=== PATIENT | female | born 1945 | race Caucasian/White ===

== ENCOUNTER → 2018-03-04 10:44 | Outpatient (CLI) | payer MEDICARE, BC, SELFPAY ==
--- NOTE | 2018-03-04 | DI.ECHO.S_ITS ---
[place] [facility]---------+ [facility] +---------+ : : [address] : : : : [id number] : : : : Phone: [phone]+ Echocardiogram Report + + :Name: KATHERINE FRAZIER Study Date: 03/04/2018 Height: 60 in : :[facility] Exam Location: [facility] Weight: 109 lb : : Gender: Female BSA: 1.4 m2 : :: 1945 Age: 72 yrs BP: 105/70 mmHg: :Reason For Study: Atrial fibrillation : :Ordering Physician: Liv Alberto : :Ralph Performed By: Aura Page : + + Interpretation Summary 1) Normal left ventricular size, thickness, and systolic function (EF 55-60%). 2) There is a large mobile mass measuring at 1.5x 2.1 cm that has echolucency in it and appears attached to mid inferoseptum. This is suspicious for tumor. 3) Normal right ventricular size and function. 4) Both atria are severely dilated. 5) The IVC is dilated (diameter is greater than 2.1 cm) and it collapses less than 50% with a sniff. This suggests a high right atrial pressure of 15 mm Hg. 6) No prior Echo available for comparison. I spoke with Dr. Gallego at [facility] cardiac surgery and he will see the patient expeditiously as outpatient in his clinic to discuss further care. Procedure: A two-dimensional transthoracic echocardiogram with color flow and Doppler was performed. The study quality was technically adequate. There is no prior echocardiogram noted for this patient. The patient was in atrial fibrillation with heart rates between 94-114 bpm during the exam. Left Ventricle: The left ventricle is normal in size. There is normal left ventricular wall thickness. There is a large mobile mass measuring at 1.5x 2.1 cm that has echolucency in it and appears attached to mid inferoseptum. The ejection fraction is estimated to be 55-60%. Left ventricular systolic function is normal. There are no obvious focal wall motion abnormalities noted but poor endocardial definition reduces the sensitivity for the detection of such. Diastolic function could not be accurately assessed due to atrial fibrillation. Right Ventricle: The right ventricle is normal in size and function. Atria: Both atria are severely dilated. There is no Doppler evidence for an interatrial shunt. Mitral Valve: The mitral valve is normal in structure and function. There is mild mitral annular calcification. Aortic Valve: The aortic valve is trileaflet. The aortic valve opens well. There is no aortic valve stenosis. No aortic regurgitation is present. Tricuspid Valve: The tricuspid valve is normal in structure and function. There is mild tricuspid regurgitation. The right ventricular systolic pressure is estimated at 45 mmHg assuming a right atrial pressure of 15 mm Hg. Pulmonic Valve: The pulmonic valve is not well visualized. There is trace pulmonic regurgitation. Great Vessels: The aortic root is mildly dilated. The ascending aorta is normal in size. The pulmonary artery is not well visualized, but is probably normal size. The IVC is dilated (diameter is greater than 2.1 cm) and it collapses less than 50% with a sniff. This suggests a high right atrial pressure of 15 mm Hg. Pericardium/ Pleura There is no pericardial effusion. There is no pleural effusion. MMode/2D Measurements & Calculations LVIDd: 3.9 cm Ao root diam: 4.0 cm LVIDs: 3.0 cm asc Aorta Diam: 2.9 cm FS: 23.6 % EPSS: 0.26 cm IVSd: 0.83 cm LVPWd: 0.79 cm LV hatch. diameter/BSA (cm/m^2): 2.7 LV sys. diameter/BSA (cm/m^2): 2.1 LA A2 area: 29.3 cm2 RA long axis: 6.1 cm LA A4 area: 26.5 cm2 RA area: 24.9 cm2 LA length (vol): 6.4 cm RA vol: 86.5 ml LA vol: 103.0 ml RA : 60.0 ml/m2 LA vol index: 71.4 ml/m2 IVC diam: 2.1 cm TAPSE: 1.6 cm Doppler Measurements & Calculations Ao V2 max: 76.1 cm/sec LVOT Max Matthew: 69.7 cm/sec Ao V2 mean: 54.2 cm/sec LV V1 max P.9 mmHg Ao max P.3 mmHg LV V1 VTI: 12.7 cm Ao mean P.3 mmHg sev ratio: 0.95 Ao V2 VTI: 13.3 cm MV E max matthew: 87.6 cm/sec TR max matthew: 245.8 cm/sec TR max P.2 mmHg PA V2 max: 45.6 cm/sec PA V2 mean: 30.1 cm/sec PA mean P.42 mmHg Reading Physician:12:36 PM
== END ==
PROVIDERS: Visit Provider Internal Medicine Cardiovascular Disease
DX: I48.1 Persistent atrial fibrillation (principal); I07.1 Rheumatic tricuspid insufficiency; I51.9 Heart disease, unspecified
CPT/HCPCS: 93306

== ENCOUNTER → 2018-05-02 11:54 | Outpatient (CLI) | payer MEDICARE, BC, SELFPAY | PROVIDERS: PCP Family Medicine; Visit Provider Family Medicine | DX: I48.91 Unspecified atrial fibrillation (principal) ==

== ENCOUNTER → 2018-08-10 14:51 | Outpatient (CLI) | payer MEDICARE, BC, SELFPAY ==
--- NOTE | 2018-08-10 | DI.ECHO.S_ITS ---
[place] +---------+ [facility] +---------+ : : [address] : : : : [id number] : : : : Phone: [phone]+ Echocardiogram Report + + :Name: KATHERINE FRAZIER Study Date: 08/10/2018 Height: 60 in : :[facility] Exam Location: [facility] Weight: 119 lb : : Gender: Female BSA: 1.5 m2 : :: 1945 Age: 72 yrs BP: 120/80 mmHg: :Reason For Study: Atrial fibrillation : :Ordering Physician: Liv Alberto : :Ralph Performed By: Aura Page : + + Interpretation Summary 1) Normal left ventricular size with low normal systolic function (EF 50-55%). 2) There is apical akinesis. Septal motion is consistent with post-operative state. 3) Mildly enlarged right ventricle with mildly reduced function. 4) Both atria are severely dilated. 5) There is moderate mitral regurgitation. 6) There is moderate tricuspid regurgitation. 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 Procedure: A two-dimensional transthoracic echocardiogram with color flow and Doppler was performed. The study quality was technically adequate. Comparison is made with the echocardiogram of 03/04/2018. The patient was in atrial fibrillation with heart rates between 117-118 bpm during the exam. Left Ventricle: The left ventricle is normal in size. Left ventricular wall thickness is mildly increased. The ejection fraction is estimated to be 50- 55%. Left ventricular systolic function is low normal. There is apical akinesis. Septal motion is consistent with post-operative state. Diastolic function could not be accurately assessed due to atrial fibrillation. Right Ventricle: The right ventricle is mildly dilated. Right ventricular systolic function is mildly reduced. Atria: Both atria are severely dilated. There is no Doppler evidence for an interatrial shunt. Mitral Valve: The mitral valve leaflets appear mildly thickened, but open well. There is mild mitral annular calcification. There is moderate mitral regurgitation. There are multiple regurgitant jets present. Aortic Valve: The aortic valve is trileaflet. The aortic valve opens well. There is no aortic valve stenosis. No aortic regurgitation is present. Tricuspid Valve: Tricuspid leaflets are thickened. There is moderate tricuspid regurgitation. Right ventricular systolic pressure is estimated to be 22 mmHg plus the clinically estimated CVP which cannot be estimated on this exam. Pulmonic Valve: The pulmonic valve is not well visualized. There is trace pulmonic regurgitation. Great Vessels: The aortic root is normal size. The ascending aorta is normal in size. The pulmonary artery is not well visualized, but is probably normal size. The IVC does not appear dilated but does not appear to have respiratory collapse which suggests moderately high central venous pressure. Pericardium/ Pleura There is no pericardial effusion. There is no pleural effusion. MMode/2D Measurements & Calculations LVIDd: 3.8 cm LVOT diam: 1.7 cm LVIDs: 3.0 cm Ao root diam: 3.7 cm FS: 20.5 % asc Aorta Diam: 3.1 cm EPSS: 0.60 cm IVSd: 0.80 cm LVPWd: 0.99 cm LV hatch. diameter/BSA (cm/m^2): 2.6 LV sys. diameter/BSA (cm/m^2): 2.0 LA A2 area: 25.2 cm2 RA long axis: 6.8 cm LA A4 area: 25.1 cm2 RA area: 29.5 cm2 LA length (vol): 6.8 cm RA vol: 108.9 ml LA vol: 79.0 ml RA : 72.8 ml/m2 LA vol index: 52.7 ml/m2 IVC diam: 1.8 cm RVD1 (basal): 4.0 cm TAPSE: 1.1 cm Doppler Measurements & Calculations Ao V2 max: 67.6 cm/sec LVOT Max Matthew: 45.4 cm/sec Ao V2 mean: 52.6 cm/sec LV V1 max P.83 mmHg Ao max P.8 mmHg LV V1 VTI: 7.1 cm Ao mean P.2 mmHg LULY(I,D): 1.5 cm2 Ao V2 VTI: 11.0 cm LULY(V,D): 1.6 cm2 sev ratio: 0.65 LULY indexed to BSA (cm^2/m^2): 1.00 MV E max matthew: 84.0 cm/sec TR max matthew: 234.1 cm/sec Med Peak E' Matthew: 4.5 cm/sec TR max P.9 mmHg E/E' med: 18.6 PA V2 max: 44.7 cm/sec Lat Peak E' Matthew: 7.0 cm/sec PA V2 mean: 31.9 cm/sec E/E' lat: 12.0 PA mean P.44 mmHg E/e' average: 15.3 MV P1/2t: 33.8 msec MV P1/2t max matthew: 86.2 cm/sec SV(LVOT): 16.4 ml MVA(P12t): 6.5 cm2 Reading Physician:05:09 PM
== END ==
PROVIDERS: PCP Family Medicine; Visit Provider Internal Medicine Cardiovascular Disease
DX: I48.91 Unspecified atrial fibrillation (principal); I08.1 Rheumatic disorders of both mitral and tricuspid valves
CPT/HCPCS: 93306

== ENCOUNTER → 2020-09-10 14:53 | Outpatient (CLI) | payer MEDICARE, BC, SELFPAY ==
--- NOTE | 2020-09-10 14:56 | DI.ECHO.S_ITS ---
[place] +---------+ Hospital +---------+ : : [address] : : : : [id number] : : : : Phone: [phone]+ Echocardiogram Report + + :Name: KATHERINE FRAZIER Study Date: 09/10/2020 Height: 60 in : :[facility] ReadingLocation: Weight: 110 lb : : Gender: Female BSA: 1.4 m2 : :: 1945 Age: 74 yrs BP: 147/81 mmHg: :Reason For Study: ATRIAL FIBRILLATION : :Ordering Physician: AVERY, : :JAMISON Performed By: Natividad Gardner : :Referring: JAMISON ROSAS : + + Interpretation Summary 1) Normal left ventricular size, thickness, wall motion, and systolic function (EF 60-65%). 2) Nromal right ventricular size and function. 3) Both atria are severely dilated. 4) No significant valvular abnormalities. 5) The right ventricular systolic pressure is estimated to be at least 39 mmHg based on an estimated right atrial pressure of 3 mm Hg. 6) Compared to the Echo done 03/29/2019, no significant change. Procedure: A two-dimensional transthoracic echocardiogram with color flow and Doppler was performed. The study quality was technically adequate. Comparison is made with the echocardiogram of 03/29/2019. The patient was in sinus bradycardia with heart rates between 53-64 bpm during the exam. The patient had occasional PVCs during the exam. Left Ventricle: The left ventricle is normal in size and wall thickness. The ejection fraction is estimated to be 60-65%. Left ventricular systolic function appears normal without focal wall motion abnormalities. Right Ventricle: The right ventricle is normal in size and function. Atria: Both atria are severely dilated. There is no Doppler evidence for an interatrial shunt. Mitral Valve: There is mild mitral annular calcification. The mitral valve leaflets appear mildly thickened, but open well. There is mild mitral regurgitation. Aortic Valve: The aortic valve is trileaflet. The aortic valve opens well. There is mild aortic valve sclerosis. There is no aortic valve stenosis. No aortic regurgitation is present. Tricuspid Valve: The tricuspid valve leaflets are thin and pliable. There is mild tricuspid regurgitation. The right ventricular systolic pressure is estimated to be at least 39 mmHg based on an estimated right atrial pressure of 3 mm Hg. Pulmonic Valve: The pulmonic valve is not well seen, but is grossly normal. There is no pulmonic valvular regurgitation. Great Vessels: The aortic root is normal size. The dimensions of the ascending aorta are normal. The IVC is of normal diameter and collapses greater than 50% with a sniff. This suggests a low right atrial pressure of 3 mm Hg. Pericardium/ Pleura There is no pericardial effusion. There is no pleural effusion. MMode/2D Measurements & Calculations LVIDd: 4.6 cm LVOT diam: 2.0 cm LVIDs: 3.0 cm Ao root diam: 3.6 cm FS: 34.6 % asc Aorta Diam: 3.0 cm EPSS: 0.32 cm Ao Arch Diam (Prox Trans): 2.7 cm IVSd: 0.79 cm LVPWd: 0.74 cm LV hatch. diameter/BSA (cm/m^2): 3.2 LV sys. diameter/BSA (cm/m^2): 2.1 LA A2 area: 29.1 cm2 RA long axis: 5.8 cm LA A4 area: 28.6 cm2 RA area: 26.7 cm2 LA length (vol): 6.5 cm RA vol: 104.9 ml LA vol: 108.2 ml RA : 72.5 ml/m2 LA vol index: 74.8 ml/m2 IVC diam: 1.5 cm RVD1 (basal): 3.7 cm TAPSE: 1.9 cm Doppler Measurements & Calculations Ao V2 max: 109.6 cm/sec LVOT Max Matthew: 107.6 cm/sec Ao V2 mean: 73.3 cm/sec LV V1 max P.6 mmHg Ao max P.8 mmHg LV V1 VTI: 24.6 cm Ao mean P.5 mmHg LULY(I,D): 3.2 cm2 Ao V2 VTI: 24.3 cm LULY(V,D): 3.1 cm2 sev ratio: 1.0 LULY indexed to BSA (cm^2/m^2): 2.2 MV E max matthew: 98.6 cm/sec TR max matthew: 298.9 cm/sec Med Peak E' Matthew: 4.1 cm/sec TR max P.7 mmHg E/E' med: 24.0 PA V2 max: 72.2 cm/sec Lat Peak E' Matthew: 10.3 cm/sec PA V2 mean: 53.7 cm/sec E/E' lat: 9.6 PA mean P.3 mmHg E/e' average: 16.8 PA pr(Accel): 31.0 mmHg MV dec time: 0.17 sec SV(LVOT): 77.0 ml Reading Physician:10:30 AM
== END ==
PROVIDERS: PCP Family Medicine; Referring Provider Internal Medicine Cardiovascular Disease; Visit Provider Internal Medicine Cardiovascular Disease
DX: I48.19 Other persistent atrial fibrillation (principal)
CPT/HCPCS: 93306

== ENCOUNTER → 2021-05-07 08:19 | Outpatient (CLI) | payer MEDICARE, SELFPAY ==
[2021-05-07 12:07] LABS: COVID19 -Nasal RAPID Negative (Negative)
== END ==
PROVIDERS: PCP Family Medicine; Visit Provider Physician Assistant
DX: Z20.822 Contact with and (suspected) exposure to COVID-19 (principal)
CPT/HCPCS: 87635; C9803

== ENCOUNTER 2021-05-09 14:28 | Day surgery (SDC) | payer MEDICARE, OTHER, SELFPAY ==
--- NOTE | 2021-05-09 12:31 | PM.HP.1 ---
History of Present Illness History of Present Illness Date Patient Seen: 05/09/21 Chief complaint: SCREENING COLONOSCOPY Narrative: 75 year old female comes in today for consideration of a screening colonoscopy. Last colonoscopy in 2016 significant for a sigmoid tubular adenoma, diminutive. Mild diverticulosis noted, left-sided. There have been no lower GI symptoms suggesting disease such as change in bowel habits, bleeding, abdominal pain or anemia. There's been no family history of colon cancer or colon polyps. Overall health issues have been stable, including no major cardiac events for at least 6 weeks. She is on Eliquis. Dr. Ramirez has approved her procedure and advised her to stop Eliquis 3 days prior and restart 1 day after the colonoscopy. PCP: Dr. 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 Retired RN. Meds Home Medications and Allergies Home Medications Medication Instructions Recorded Confirmed Type apixaban 5 mg tablet (Eliquis) 5 mg PO DAILY 05/09/21 05/09/21 History levothyroxine 88 mcg tablet 88 mcg PO DAILY 05/09/21 05/09/21 History metoprolol succinate 50 mg 25 mg PO BID 05/09/21 05/09/21 History tablet,extended release 24 hr Allergies Allergy/AdvReac Type Severity Reaction Status Date / Time Penicillins [PENICILLINS] Allergy Intermediate Rash Verified 05/09/21 15:24 Review of Systems Review of Systems Narrative: All remaining ROS were reviewed and negative except as addressed. Exam Narrative Exam Narrative: GENERAL: Alert and oriented, appearing stated age and in no acute distress. HEENT: Head normocephalic/atraumatic. Extraocular movements intact. LUNGS: Clear to ausculation bilaterally, no wheezes, rhonchi or rales. CV: Normal S1 and S2 with regular rate and rhythm, no audible murmurs, rubs or gallops. ABDOMEN: Soft, non-tender, non-distended, no organomegaly. Positive bowel sounds. EXTREMITIES: No clubbing, cyanosis, or edema. NEURO: Cranial nerves II through XII grossly intact, no focal deficits. PSYCH: Alert and oriented x 3. SKIN: No concerning lesions. Assessment & Plan Assessment & Plan narrative: 1. History of colon polyps 2. Screening for colon cancer 3. Anticoagulated Plan for colonoscopy. The nature and character of the procedure as well as anticipated results were discussed. The possibility of not completing the procedure was also discussed. Possible complications including aspiration pneumonia, bleeding, perforation and reaction to medications either for sedation or preparation and missed lesions were discussed. Questions were answered and proceeding to the colonoscopy was elected. Informed consent signed. I sincerely appreciate the referral allowing me to participate in this patient's care. Please contact me with any questions or concerns. Plan will be to restart Eliquis 24 hours after procedure.
--- NOTE | 2021-05-09 12:43 | PM.OP.COLON ---
Operative Date/Time/Diagnoses Date of procedure: 05/09/21 Procedure Notes SCOAP/Timeout: 3:42 p.m. Procedure in detail: ENDOSCOPIST: Esther Lau MD Sedation RN: Soraida Mcqueen RN Sedation start time: 3:47 p.m. Sedation end time: 4:05 p.m. PROCEDURE: Colonoscopy INDICATIONS: 1. History of colon polyps 2. Screening for colon cancer MEDICATION: Levsin 0.125 mg sublingual, incremental doses of Versed and fentanyl until appropriate level sedation achieved. ASA CLASS: 2 CECAL WITHDRAWAL TIME: 10 minutes COMPLICATIONS: None. EXTENT OF PROCEDURE: Cecum. QUALITY OF PREP: Good with portions of liquid stool. PROCEDURE: Prior to insertion of the colonoscope, a digital rectal examination was accomplished with circumferential palpation of the distal rectal mucosa without significant findings being noted. The high-definition pediatric colonoscope was passed into the rectum in the usual fashion and advanced over to the cecum without difficulty. The ileocecal valve, appendiceal stoma, and medial wall all could be inspected and no abnormalities were seen. ASCENDING COLON: As the colonoscope was withdrawn, care was taken to expose and inspect the haustral folds and no abnormalities were seen. HEPATIC FLEXURE: Normal, no polyps, diverticula or other abnormalities. TRANSVERSE COLON: Normal, no polyps, diverticula or other abnormalities. DESCENDING COLON: Normal, no polyps, diverticula or other abnormalities. SIGMOID COLON: Minor diverticulosis, otherwise normal, no polyps or other abnormalities. RECTUM: Normal. J maneuver was produced. There was no significant perianal disease. The J maneuver was broken. The remainder of the rectum was inspected and there was no external hemorrhoid disease. The scope was withdrawn. IMPRESSION: 1. Normal colonoscopy 2. Diverticulosis, minor, sigmoid PLAN: 1. Due to Patient's age, this can be be her last colonoscopy. The possibility of a missed lesion including a malignancy has been discussed with the patient previously. Potential alarm symptoms have been discussed and should be reported immediately.
[2021-05-09] MEDS: HYOSCYAMINE 0.125 MG TABLET PO (14:53)
[2021-05-09] MEDS: LACTATED RINGERS 1,000 ML 200 ML IV (14:53)
[2021-05-09 14:55] VITALS: BP 126/85; PULSE 83; RESP 16; TEMP 36.2; O2SAT 100; BMI 21.1
[2021-05-09] MEDS: MIDAZOLAM 5 MG/5 ML VIAL IV (16:06)
[2021-05-09] MEDS: fentaNYL 250 MCG/5 ML INJ IV (16:06)
[2021-05-09 16:08] VITALS: BP 115/66; PULSE 84; RESP 12; O2SAT 96
[2021-05-09 16:13] VITALS: BP 122/74; PULSE 108; RESP 14; O2SAT 96
--- NOTE | 2021-05-09 16:17 | SUR.PHASEI ---
Received to PACU after colonoscopy with sedation. Report from DO Quigley.
[2021-05-09 16:18] VITALS: BP 115/88; PULSE 89; RESP 14; O2SAT 96
[2021-05-09 16:27] VITALS: BP 134/84; PULSE 110; RESP 12; TEMP 36.4; O2SAT 95
[2021-05-09 16:40] VITALS: BP 135/80; PULSE 90; RESP 18; O2SAT 98
--- NOTE | 2021-05-09 17:02 | SUR.PHASEII ---
Addendum entered by Aura Sahrif R.N. 05/09/21 17:16: le: 1640-patients voice slightly garbled but clear -pt had oral cavity cancer/radiation treatments in past. patient states this is her normal. Original Note: 1640-Patient meet discharge criteria. patient wide awake and alert/oreinted x 4. vss. denies pain or nausea. iv stopped. home instructions completed. iv discontinued and dressed self. ride called. 1645-up ambulatory in unit. brp x 1. 1650-discharged to home by wheelchair with all belongings and paperwork to husbands care and car.
== END 2021-05-09 16:50 | disposition home or self-care (01) ==
PROVIDERS: PCP Family Medicine; Referring Provider Student in an Organized Health Care Education/Training Program; Visit Provider Student in an Organized Health Care Education/Training Program
PROC: 0DJD8ZZ Inspection of Lower Intestinal Tract, Via Natural or Artificial Opening Endoscopic (ICD-10-PCS; CPT 45378; principal; 2021-05-09 15:15)
DX: Z12.11 Encounter for screening for malignant neoplasm of colon (principal); Z86.010 Personal history of colon polyps; E03.9 Hypothyroidism, unspecified; Z79.01 Long term (current) use of anticoagulants; I48.91 Unspecified atrial fibrillation; K57.30 Diverticulosis of large intestine without perforation or abscess without bleeding
CPT/HCPCS: G0105; J2250; J3010

== ENCOUNTER → 2021-09-29 07:51 | Outpatient (CLI) | payer MEDICARE, OTHER, SELFPAY ==
--- NOTE | 2021-09-29 | DI.ECHO.S_ITS ---
[place] +---------+ Hospital +---------+ : : [address] : : : : [id number] : : : : Phone: [phone]+ Echocardiogram Report + + :Name: KATHERINE FRAZIER Study Date: 09/29/2021 Height: 60 in : :[facility] ReadingLocation: Weight: 109 lb : : Gender: Female BSA: 1.4 m2 : :: 1945 Age: 75 yrs BP: 132/89 mmHg: :Reason For Study: ATRIAL FIBRILLATION : :Ordering Physician: AVERY, : :JAMISON Performed By: Natividad Gardner : :Referring: JAMISON ROSAS : + + Interpretation Summary 1) Normal left ventricular size and thickness with low normal systolic function (EF about 50%). 2) Nromal right ventricular size and function. 3) Both atria are severely dilated. 4) There is mild to moderate mitral regurgitation. 5) There is moderate tricuspid regurgitation. 6) The right ventricular systolic pressure is estimated to be at least 43 mmHg based on an estimated right atrial pressure of 8 mm Hg. 7) Compared to the Echo done 09/10/2020, LVEF has decreased slightly from 60% to 50% and valvular regurgitation are present as noted above. Procedure: A two-dimensional transthoracic echocardiogram with color flow and Doppler was performed. Comparison is made with the echocardiogram of 09/10/2020. The study quality was technically adequate. The patient was in atrial fibrillation with heart rates between 76-115 bpm during the exam. Left Ventricle: The left ventricle is normal in size and wall thickness. Left ventricular ejection fraction is estimated to be 50 +/- 5%. There are no other obvious focal wall motion abnormalities. Septal motion is consistent with post-operative state. Diastolic function could not be accurately assessed due to atrial fibrillation. Right Ventricle: The right ventricle is normal size. Right ventricular systolic function is mild to moderately reduced. Atria: The left atrium is severely dilated. The right atrium is severely dilated. Mitral Valve: There is moderate mitral annular calcification. The mitral valve leaflets appear mildly thickened, but open well. There is mild to moderate mitral regurgitation. Aortic Valve: The aortic valve is trileaflet. The aortic valve opens well. There is no aortic valve stenosis. No aortic regurgitation is present. Tricuspid Valve: The tricuspid annulus is dilated. There is moderate tricuspid regurgitation. The right ventricular systolic pressure is estimated to be at least 43 mmHg based on an estimated right atrial pressure of 8 mm Hg. Pulmonic Valve: The pulmonic valve leaflets are thin and pliable; valve motion is normal. There is no pulmonic valvular regurgitation. Great Vessels: The aortic root is normal size. The dimensions of the ascending aorta are normal. The IVC is of normal diameter and collapses less than 50% with a sniff. This suggests a right atrial pressure of 8 mm Hg. Pericardium/ Pleura There is no pericardial effusion. There is no pleural effusion. MMode/2D Measurements & Calculations LVIDd: 4.6 cm LVOT diam: 1.9 cm LVIDs: 3.4 cm Ao root diam: 3.2 cm FS: 26.0 % asc Aorta Diam: 3.0 cm IVSd: 0.67 cm Ao Arch Diam (Prox Trans): 2.8 cm LVPWd: 0.75 cm LV hatch. diameter/BSA (cm/m^2): 3.2 LV sys. diameter/BSA (cm/m^2): 2.3 LA A2 area: 28.0 cm2 RA long axis: 6.2 cm LA A4 area: 28.7 cm2 RA area: 30.8 cm2 LA length (vol): 6.8 cm RA vol: 129.7 ml LA vol: 100.5 ml RA : 89.9 ml/m2 LA vol index: 69.7 ml/m2 IVC diam: 1.8 cm RVD1 (basal): 3.8 cm RVD2 (mid): 3.0 cm TAPSE: 1.4 cm Doppler Measurements & Calculations Ao V2 max: 76.1 cm/sec LVOT Max Matthew: 50.7 cm/sec Ao V2 mean: 54.4 cm/sec LV V1 max P.3 mmHg Ao max P.3 mmHg LV V1 VTI: 9.7 cm Ao mean P.3 mmHg LULY(I,D): 1.9 cm2 Ao V2 VTI: 14.2 cm LULY(V,D): 1.9 cm2 sev ratio: 0.68 LULY indexed to BSA (cm^2/m^2): 1.3 MV E max matthew: 90.9 cm/sec TR max matthew: 297.0 cm/sec MV A max matthew: 2.4 cm/sec TR max P.3 mmHg MV E/A: 37.2 PA V2 max: 64.0 cm/sec Med Peak E' Matthew: 5.2 cm/sec PA V2 mean: 48.9 cm/sec E/E' med: 17.5 PA mean P.0 mmHg Lat Peak E' Matthew: 8.3 cm/sec PA pr(Accel): 34.5 mmHg E/E' lat: 11.0 E/e' average: 14.2 MV dec time: 0.13 sec SV(LVOT): 27.1 ml Reading Physician:11:16 AM
== END ==
PROVIDERS: PCP Family Medicine; Referring Provider Internal Medicine Cardiovascular Disease; Visit Provider Internal Medicine Cardiovascular Disease
DX: I48.19 Other persistent atrial fibrillation (principal); Z86.79 Personal history of other diseases of the circulatory system; I08.1 Rheumatic disorders of both mitral and tricuspid valves
CPT/HCPCS: 93306

== ENCOUNTER → 2022-12-23 09:11 | Outpatient (CLI) | payer MEDICARE, OTHER, SELFPAY ==
--- NOTE | 2022-12-23 | DI.ECHO.S_ITS ---
[facility] +---------+ : : [address] [address] : : : : [id number] : : : : Phone: [phone] Echocardiogram Report + + :Name: KATHERINE FRAZIER Study Date: 12/23/2022 Height: 60 in : :[facility] ReadingLocation: Weight: 108 lb : : Gender: Female BSA: 1.4 m2 : :: 1945 Age: 77 yrs BP: 123/85 mmHg: :Reason For Study: MITRAL INSUFFICIENCY : :Ordering Physician: AVERY, : :JAMISON Performed By: Natividad Gardner : :Referring: JAMISON ROSAS : + + Interpretation Summary 1) Normal left ventricular size and thickness with mildly reduced systolic function (EF about 45%). 2) Upper normal right ventricular size with moderately reduced function. 3) Severe biatrial enlargement. 4) There is mild to moderate mitral regurgitation. 5) There is moderate tricuspid regurgitation. 6) The right ventricular systolic pressure is estimated to be at least 59 mmHg based on an estimated right atrial pressure of 15 mm Hg. 7) Compared to the Echo done 09/29/2021, LVEF has decreased from 50% to 45% on this study and right sided hypervolemia is present on this study. Procedure: A two-dimensional transthoracic echocardiogram with color flow and Doppler was performed. The study quality was technically adequate. Comparison is made with the echocardiogram of 09/29/2021. The patient was in atrial fibrillation with heart rates between 78-113 bpm during the exam. Left Ventricle: The left ventricle is normal in size and wall thickness. The ejection fraction is estimated to be 45-50%. Diastolic function could not be accurately assessed due to atrial fibrillation. Right Ventricle: A moderator band is seen in the right ventricle. The right ventricle is at the upper limits of normal in size. Right ventricular systolic function is moderately reduced. Atria: There is severe biatrial enlargement. There is no Doppler evidence for an interatrial shunt. Mitral Valve: The mitral valve leaflets appear mildly thickened, but open well. There is moderate mitral annular calcification. There is mild to moderate mitral regurgitation. Aortic Valve: The aortic valve is trileaflet. The aortic valve opens well. There is no aortic valve stenosis. No aortic regurgitation is present. Tricuspid Valve: The tricuspid annulus is dilated. There is moderate tricuspid regurgitation. The right ventricular systolic pressure is estimated to be at least 59 mmHg based on an estimated right atrial pressure of 15 mm Hg. Pulmonic Valve: The pulmonic valve is not well visualized. Great Vessels: The aortic root is normal size. The dimensions of the ascending aorta are normal. The IVC is dilated (diameter is greater than 2.1 cm) and it collapses less than 50% with a sniff. This suggests a high right atrial pressure of 15 mm Hg. Pericardium/ Pleura There is no pericardial effusion. There is no pleural effusion. MMode/2D Measurements & Calculations LVIDd: 4.4 cm LVOT diam: 1.8 cm LVIDs: 3.5 cm Ao root diam: 3.5 cm FS: 20.6 % asc Aorta Diam: 3.1 cm EPSS: 0.70 cm Ao Arch Diam (Prox Trans): 2.5 cm IVSd: 0.70 cm LVPWd: 0.76 cm LV hatch. diameter/BSA (cm/m^2): 3.0 LV sys. diameter/BSA (cm/m^2): 2.4 LA A2 area: 27.6 cm2 RA long axis: 5.9 cm LA A4 area: 26.6 cm2 RA area: 22.1 cm2 LA length (vol): 5.9 cm RA vol: 70.7 ml LA vol: 105.6 ml RA : 49.2 ml/m2 LA vol index: 73.5 ml/m2 IVC diam: 2.1 cm RVD1 (basal): 3.9 cm RVD2 (mid): 2.8 cm TAPSE: 1.2 cm Doppler Measurements & Calculations Ao V2 max: 61.4 cm/sec LVOT Max Matthew: 44.4 cm/sec Ao V2 mean: 42.6 cm/sec LV V1 max P.79 mmHg Ao max P.5 mmHg LV V1 VTI: 8.7 cm Ao mean P.83 mmHg LULY(I,D): 2.1 cm2 Ao V2 VTI: 10.7 cm LULY(V,D): 1.9 cm2 sev ratio: 0.81 LULY indexed to BSA (cm^2/m^2): 1.5 MV E max matthew: 72.7 cm/sec TR max matthew: 329.7 cm/sec MV A max matthew: 2.4 cm/sec TR max P.5 mmHg MV E/A: 30.5 Med Peak E' Matthew: 5.3 cm/sec E/E' med: 13.8 Lat Peak E' Matthew: 9.0 cm/sec E/E' lat: 8.1 E/e' average: 10.9 MV dec time: 0.10 sec MR ERO: 0.22 cm2 MR PISA: 3.8 cm2 SV(LVOT): 22.3 ml MR flow rate: 115.8 cm3/sec MR PISA radius: 0.77 cm Reading Physician:11:11 AM
== END ==
PROVIDERS: PCP Family Medicine; Referring Provider Internal Medicine Cardiovascular Disease; Visit Provider Internal Medicine Cardiovascular Disease
DX: I08.1 Rheumatic disorders of both mitral and tricuspid valves (principal)
CPT/HCPCS: 93306

== ENCOUNTER → 2024-02-21 13:46 | Outpatient (CLI) | payer MEDICARE, OTHER, SELFPAY ==
--- NOTE | 2024-02-21 13:49 | DI.ECHO.S_ITS ---
[facility]+ [facility] : : [address] : : [place] : : [id number] : : Phone: [phone] Echocardiogram Report + + :Name: KATHERINE FRAZIER Study Date: 02/21/2024 Height: 60 in : :[facility] ReadingLocation: Weight: 111 lb : : Gender: Female BSA: 1.5 m2 : :: 1945 Age: 78 yrs BP: 109/74 mmHg: :Reason For Study: MITRAL INSUFFICIENCY : :Ordering Physician: AVERY, : :JAMISON Performed By: Natividad Gardner : :Referring: JAMISON ROSAS : + + Interpretation Summary 1) Normal left ventricular size and thickness with low normal systolic function (EF 50-55%). 2) Grossly, mildly enlarged normal right ventricle with moderately to severely reduced function. 3) Severe biatrial enlargement. 4) There is mild to moderate mitral regurgitation. 5) There is mild tricuspid regurgitation. 6) The right ventricular systolic pressure is estimated to be at least 47 mmHg based on an estimated right atrial pressure of 8mm Hg. 7) Compared to the Echo done 12/23/2022, hypervolemic has resolved on this study and EF has improved from 45% to 50-55% on this study. Procedure: A two-dimensional transthoracic echocardiogram with color flow and Doppler was performed. The study quality was technically difficult. Comparison is made with the echocardiogram of 12/23/2022. The patient was in atrial fibrillation with heart rates between 79-110 bpm during the exam. Left Ventricle: The left ventricle is normal in size and wall thickness. The ejection fraction is estimated to be 50-55%. There are no focal wall motion abnormalities. Diastolic function could not be accurately assessed due to atrial fibrillation. Right Ventricle: The right ventricle is not well visualized. The right ventricle is mildly dilated. Right ventricular systolic function is moderate to severely reduced. Atria: There is severe biatrial enlargement. There is no Doppler evidence for an interatrial shunt. Mitral Valve: The mitral valve leaflets appear mildly thickened, but open well. There is moderate mitral annular calcification. There is mild to moderate mitral regurgitation. There are multiple regurgitant jets present. Aortic Valve: The aortic valve is trileaflet. The aortic valve opens well. There is no aortic valve stenosis. No aortic regurgitation is present. Tricuspid Valve: The tricuspid valve leaflets are thin and pliable. There is mild tricuspid regurgitation. The right ventricular systolic pressure is estimated to be at least 47 mmHg based on an estimated right atrial pressure of 8 mm Hg. Pulmonic Valve: The pulmonic valve leaflets are thin and pliable; valve motion is normal. There is trace pulmonic regurgitation. Great Vessels: The aortic root is normal size. The dimensions of the ascending aorta are normal. The IVC is of normal diameter and collapses less than 50% with a sniff. This suggests a right atrial pressure of 8 mm Hg. Pericardium/ Pleura There is no pericardial effusion. There is no pleural effusion. MMode/2D Measurements & Calculations LVIDd: 4.6 cm LVOT diam: 2.0 cm LVIDs: 3.2 cm Ao root diam: 3.1 cm FS: 30.7 % asc Aorta Diam: 3.0 cm IVSd: 0.79 cm Ao Arch Diam (Prox Trans): 2.6 cm LVPWd: 0.85 cm LV hatch. diameter/BSA (cm/m^2): 3.2 LV sys. diameter/BSA (cm/m^2): 2.2 LA A2 area: 26.8 cm2 RA long axis: 5.7 cm LA A4 area: 21.9 cm2 RA area: 21.7 cm2 LA length (vol): 5.9 cm RA vol: 69.6 ml LA vol: 83.7 ml RA : 47.9 ml/m2 LA vol index: 57.6 ml/m2 IVC diam: 1.8 cm RVD1 (basal): 3.3 cm TAPSE: 0.81 cm Doppler Measurements & Calculations Ao V2 max: 83.1 cm/sec LVOT Max Matthew: 67.4 cm/sec Ao V2 mean: 59.9 cm/sec LV V1 max P.8 mmHg Ao max P.8 mmHg LV V1 VTI: 12.6 cm Ao mean P.6 mmHg LULY(I,D): 2.3 cm2 Ao V2 VTI: 16.6 cm LULY(V,D): 2.4 cm2 sev ratio: 0.76 LULY indexed to BSA (cm^2/m^2): 1.6 MV E max matthew: 66.5 cm/sec TR max matthew: 312.1 cm/sec MV A max matthew: 0.00 cm/sec TR max P.0 mmHg Med Peak E' Matthew: 4.8 cm/sec PA V2 max: 55.2 cm/sec E/E' med: 13.9 PA V2 mean: 41.7 cm/sec Lat Peak E' Matthew: 11.2 cm/sec PA mean P.75 mmHg E/E' lat: 6.0 PA pr(Accel): 43.0 mmHg E/e' average: 9.9 MV dec time: 0.24 sec MR ERO: 0.26 cm2 MR PISA: 3.4 cm2 SV(LVOT): 38.0 ml MR flow rate: 131.9 cm3/sec MR PISA radius: 0.73 cm Reading Physician:05:21 PM
== END ==
PROVIDERS: PCP Family Medicine; Referring Provider Internal Medicine Cardiovascular Disease; Visit Provider Internal Medicine Cardiovascular Disease
DX: I08.1 Rheumatic disorders of both mitral and tricuspid valves (principal); I50.812 Chronic right heart failure
CPT/HCPCS: 93306

== ENCOUNTER → 2025-04-11 12:29 | Outpatient (CLI) | payer MEDICARE, OTHER, SELFPAY | LOC: ECHO 12:31 | PROVIDERS: PCP Family Medicine; Referring Provider Family Medicine; Visit Provider Internal Medicine Cardiovascular Disease | DX: I08.1 Rheumatic disorders of both mitral and tricuspid valves (principal); I50.812 Chronic right heart failure | CPT/HCPCS: 93306 ==